=== PATIENT | male | born 1980 | race Caucasian/White ===

== ENCOUNTER 2019-09-22 18:14 | Emergency (ER) | payer MEDICARE, MEDICAID ==
[~2019-09-22] VITALS: Ht 177.8 cm; Wt 135.4 kg
[2019-09-22] MEDS: IBUPROFEN 800 MG TAB PO ONE (21:40)
[2019-09-22 22:46] VITALS: BP 147/89
== END 2019-09-22 22:49 | disposition home or self-care (01) ==
LOC: ER 18:14
DX: S62.111A Displaced fracture of triquetrum [cuneiform] bone, right wrist, initial encounter for closed fracture (principal); S53.402A Unspecified sprain of left elbow, initial encounter; S93.401A Sprain of unspecified ligament of right ankle, initial encounter; E11.9 Type 2 diabetes mellitus without complications; W18.39XA Other fall on same level, initial encounter; Y93.89 Activity, other specified; Y92.89 Other specified places as the place of occurrence of the external cause; Y99.8 Other external cause status
CPT/HCPCS: 29125; 73080; 73110; 73200; 73610